=== PATIENT | male | born 1935 | race American Indian/Alaskan Native ===

== ENCOUNTER 2022-05-14 16:59 | Emergency (ER) | payer MEDICARE ==
[2022-05-14] MEDS ORDERED: AMIODARONE 150 MG/3 ML INJ IV ONE ×2 (17:30→17:31)
[2022-05-14] MEDS ORDERED: ATROPINE 0.1% (1 MG/10 ML) CARDIAC SYRINGE ONE (17:31)
[2022-05-14] MEDS ORDERED: EPINEPHrine 1 MG/10 ML SYRINGE ONE (17:31)
[2022-05-14] MEDS ORDERED: SODIUM BICARB 8.4% 50 MEQ/50 ML SYRINGE IV ONE (17:31)
[2022-05-14] MEDS ORDERED: CALCIUM CHLORIDE 1,000 MG/10 ML SYRINGE IV ONE (17:31)
--- NOTE | 2022-05-14 18:01 | XRay Report ---
CHEST 1 VIEW 05/14/2022 4:53 PM INDICATION / CLINICAL INFORMATION: cardiac arrest. COMPARISON: None available. FINDINGS: SUPPORT DEVICES: ET tube is satisfactory in position. HEART / MEDIASTINUM: No significant abnormality. LUNGS / PLEURA: Diffuse bilateral pulmonary opacities with left effusion No pneumothorax. ADDITIONAL FINDINGS: No significant additional findings. IMPRESSION: Diffuse bilateral pulmonary opacities with left effusion Signer Name: Shant Trujillo MD Signed: 05/14/2022 5:57 PM Workstation Name: [id number]
[2022-05-14 18:15] VITALS: BP 92/43
--- NOTE | 2022-05-14 18:33 | Emergency Department Report ---
HPI - General Chief Complaint: Cardiac Arrest/CPR PUI?: No Time Seen by Provider: 05/14/22 17:29 - HPI HPI: 86-year-old male with a history of type 2 diabetes, per EMSs report, arrives by EMS status post cardiac arrest. Cardiac arrest was unwitnessed but per EMS, family member states the patient was last seen 10 minutes prior to EMS being called and at that time he was found. He was found to be unresponsive in the bed by his family members. CPR was initiated by the family members. EMS reports that the patient was in asystole. They immediately started ACLS and the patient was given epinephrine 1 mg IV x4. He was emergently intubated with a size 7 ET tube which was at #22 at the lips. Patient was also found to have an episode of transient V. fib. He was shocked at 300 J but symptoms was subsequently in persistent PEA arrest. Last epinephrine was given 7 minutes prior to arrival. Per EMS family members report there was no trauma as the patient was lying in bed when he was found unresponsive. Pt was found to have mild coffee ground emesis at the time of intubation by ems, per their report. FSG 212mg/dl. ED Past Medical Hx - Past Medical History Previous Medical History?: Yes Hx Hypertension: Yes Hx Diabetes: Yes (2) - Social History Smoking Status: Never Smoker - Medications Home Medications: Home Medications Medication Instructions Recorded Confirmed Last Taken Type Aspirin [Aspirin BABY CHEW TAB] 81 mg PO DAILY 05/19/14 05/19/14 05/17/14 History Losartan/Hydrochlorothiazide 1 tab PO DAILY 05/19/14 05/19/14 05/17/14 History [Losartan-Hctz 100-12.5 mg Tab] Metformin HCl 500 mg PO BID 05/19/14 05/19/14 05/17/14 History ED Review of Systems ROS: Stated complaint: CARDIAC ARREST Other details as noted in HPI Comment: Unobtainable due to pts medical conditions Physical Exam - Physical Exam Vital Signs: Vital Signs 05/14/22 18:00 Pulse Rate 76 Blood Pressure 92/43 O2 Sat by Pulse 95 Oximetry General: Gen: Patient unresponsive, endotracheal tube in oropharynx, patient being ventilated by EMS at the time of arrival HEENT:, Patient unresponsive, NCAT; pupils equally round, unreactive, dilated bilaterally; ETT in oropharynx; coffee ground emesis noted in pt's oropharynx and in ETT tubing Neck: Full range of motion, no midline spinal tenderness palpation, no JVD, no carotid bruits, no nuchal rigidity CVS: pt unresponsive; tachycardic; unable to ascertain if S1 and S2 are present, no audible gallops rubs or murmurs Pulmonary: Patient unresponsive, patient being ventilated by EMS personnel, coarse breath sounds Abdomen: Patient unresponsive, distended, firm, hypoactive bowel sounds, Back: Unable to assess secondary to patient's current clinical condition : External genitalia unremarkable Extremities: No cyanosis no clubbing no edema, intact distal peripheral pulses, Integumentary: Skin normal, no petechia no purpura no abscess no lacerations no evidence of trauma no evidence of infection, skin is warm to touch; Neuro:pt unresponsive; GCS3, patient not moving extremities, no fasciculations or tremors or seizure-like activity noted Psych: Patient unresponsive, GCS 3 ED Course Vital Signs 05/14/22 18:00 Pulse Rate 76 Blood Pressure 92/43 O2 Sat by Pulse 95 Oximetry - Reevaluation(s) Reevaluation #1: [id number]: Patient's granddaughter, Luz Maria ([phone]) cannot be found in the emergency department. I was not able to reach her directly via the telephone number above. Registration has reported that the patient's granddaughter has called and confirmed that she left the hospital. She is transferred her to [place] to speak directly. Per her verbal report she states "I do not know about advanced directives or anything like that. I am just a granddaughter and I do not make those decisions for my grandpa." I asked to provide me with the patient's 's name and number. She verbalized that the patient's 's name is Yvette but states "she has dementia and I do not think you should call her. Please call my mom, Brigette Brian." 05/14/22 18:12 I telephoned the patient's daughter, Ms. Brigette Brian, . She confirms that she is currently in [place] and cannot be at the hospital at this time as a result. Per her verbal report, her mother, Yvette, is demented and is not able to provide information concerning her father's advanced directives and she is advising that I discussed them with her directly. She states that her father does not have any confirmed advanced directives "but I know he would not want to live this way like a vegetable. But I want to to keep trying to do everything you can for him." I informed her multiple times that the patient has gone in and out of cardiac arrest multiple times here, and that although he has intermittent ROSC, it is not sustainable. I also informed her that per my clinical judgement, his prognosis is very poor. Nevertheless she again verbally confirmed that "I want everything done for him," and verbally expresses her desire to have ACLS protocol continued, should he go into cardiac arrest again. I informed her that I would telephone her with any updates concerning his continued management in the ER. 19:16 I called the patient's daughter, Ms. Brigette Brian, and informed her that the patient had again gone into cardiac arrest here. Despite aggressive attempts to resuscitate him via CPR, patient had no return of spontaneous circulation. Informed her that a bedside ultrasound was performed by me and I was able to obtain an adequate view of the patient's cardiac chambers. Patient had no spontaneous cardiac motion. Time of was pronounced at 191. Reevaluation #3: 05/14/22 18:15 18:12 Call made to pt's daughter, Brigette Brian ([phone]). She states her mother (Yvette) has dementia and is not an accurate historian and cannot make decisions for the patient. ED Medical Decision Making - Radiology Data Radiology results: report reviewed - Medical Decision Making 86-year-old male with history of diabetes and hypertension, brought in by EMS status post unwitnessed cardiac arrest. EMS personnel emergently intubated the patient, placed a left lower extremity IO, and administering epinephrine 1 mg IV push as well as 1 amp of bicarbonate. Patient also throughout his EMS course was found to be in V. fib arrest. He was shocked by EMS via 300 J and subsequently remained in PEA arrest at the time of arrival here to the emergency department. For an extensive amount of time, the patient had multiple episodes of cardiac arrest with subsequent ROSC while here. The only family member present for this patient is his granddaughter, Luz Maria. See patient's electronic health record for my discussion with her. Per her verbal report she cannot provide information concerning advanced directives and advised me to telephone the patient's daughter which is her mother, Ms. Brigette Brian. Per daughter's report, patient is to "have everything done." I informed her that the patient's prognosis remains extremely poor. Nevertheless the patient was aggressively resuscitated but subsequently had no return of ROSC. Bedside cardiac ultrasound performed by me and patient had no spontaneous cardiac motions. Time of pronounced at 1911. I telephoned the patient's daughter, Ms. Brigette Brian, and informed her of the patient's immediately thereafter. She verbalized understanding. Critical care attestation.: If time is entered above; I have spent that time in minutes in the direct care of this critically ill patient, excluding procedure time. ED Disposition Clinical Impression: Cardiac arrest Disposition: 20 Is pt being admited?: No Does the pt Need Aspirin: No Condition: Stable
[2022-05-14] MEDS ORDERED: SODIUM CHLORIDE 0.9% 1000 ML 1,000 ML ONE ×2 (18:36)
--- NOTE | 2022-05-15 13:18 | Electrocardiograph Report ---
[facility] Test Date: 2022-05-14 Test Time: 17:07:43 Pat Name: KANDY CROUCH Department: Room: Gender: M Fiscal Clerk: CARY : [id number] Requested By: HALI MILLER Order Number: [id number] Reading MD: Elicia Lynn Measurements Intervals [place] Rate: 104 P: SC: QRS: -58 QRSD: 159 T: 103 QT: 418 QTc: 551 Interpretive Statements Wide-complex tachycardia, probably atrial fibrillation with left bundle branch block morphology Abnormal ECG No previous ECG available for comparison Electronically Signed On 05-15-2022 13:17:31 EDT by Elicia Lynn
== END 2022-05-15 00:41 ==
LOC: ED 16:59
DX: I46.9 Cardiac arrest, cause unspecified (principal); I10 Essential (primary) hypertension; E11.9 Type 2 diabetes mellitus without complications
CPT/HCPCS: 71045; 82962; 92950; 93005; 96374; 99285; J0171; J0282; J0461; J3490; J7030; 94002